=== PATIENT | male | born 1970 | race American Indian/Alaskan Native ===

== ENCOUNTER 2017-02-10 03:18 | Emergency (ER) | payer MEDICAID ==
[2017-02-10 03:19] VITALS: BMI 31.1
--- NOTE | 2017-02-10 03:36 | C.PDOC ---
History Of Present Illness Pt presents with suicidalideation and plan to jump in front of bus. steas he drank alcohol and took PCP.reuben. Pleasant and cooperative Time Seen by Provider: 02/10/17 03:36 Chief Complaint (Nursing): Psychiatric Evaluation History Per: Patient History/Exam Limitations: no limitations Onset/Duration Of Symptoms: Unknown Current Symptoms Are (Timing): Still Present Suicide/Self Injury Attempted (Context): None Modifying Factor(s): Alcohol, Narcotics Severity: Moderate Pain Scale Rating Of: 4 Associated Symptoms: Depression, Suicidal Thoughts, Suicidal Plan Involuntary Hold By: None Recent travel outside of the [place]: No Additional History Per: EMS Past Medical History Reviewed: Historical Data, Nursing Documentation, Vital Signs Vital Signs: Last Vital Signs Temp 97.9 F 02/10/17 03:30 Pulse 92 H 02/10/17 03:30 Resp 16 02/10/17 03:30 BP 145/86 02/10/17 03:30 Pulse Ox 99 02/10/17 03:41 - Medical History PMH: Depression, HTN, Hypercholesterolemia, Schizophrenia Denies: Diabetes, Hepatitis, HIV, Chronic Kidney Disease, Seizures, Sexually Transmitted Disease - [facility] Procedures GROUP SEISMOGRAPH SUPERVISOR FOR SUBSTANCE ABUSE TREATMENT, PSYCHOEDUCATION (10/06/16) GROUP PSYCHOTHERAPY (10/06/16) INDIVID PSYCHOTHERAP NEC (02/04/15) INDIVIDUAL PSYCHOTHERAPY, COGNITIVE-BEHAVIORAL (10/06/16) PHYSICAL THERAPY NEC (05/02/14) PSYCHIAT DRUG THERAP NEC (02/04/15) Family History: States: No Known Family Hx - Social History Hx Tobacco Use: Yes (heavy smoker) Hx Alcohol Use: Yes Hx Substance Use: Yes - Immunization History Hx Tetanus Toxoid Vaccination: No Hx Influenza Vaccination: No Hx Pneumococcal Vaccination: No Review Of Systems Constitutional: Negative for: Fever, Chills Eyes: Negative for: Redness ENT: Negative for: Throat Pain Cardiovascular: Negative for: Chest Pain Respiratory: Negative for: Shortness of Breath Gastrointestinal: Negative for: Nausea, Vomiting, Abdominal Pain Musculoskeletal: Negative for: Back Pain Skin: Negative for: Rash, Lesions, Jaundice, Bruising Neurological: Negative for: Weakness Psych: Positive for: Anxiety, Depression, Suicidal ideation Physical Exam - Physical Exam Appears: Non-toxic Skin: Warm, Dry Head: Normacephalic Eye(s): bilateral: Normal Inspection Oral Mucosa: Moist Neck: Supple Chest: Symmetrical Cardiovascular: Rhythm Regular Respiratory: No Rales, No Rhonchi, No Wheezing Gastrointestinal/Abdominal: Soft, No Tenderness, No Distention Back: No CVA Tenderness Extremity: Normal ROM Extremity: Bilateral: Normal Color And Temperature, Normal ROM Neurological/Psych: Oriented x3, Normal Speech, Normal Cognition Gait: Steady ED Course And Treatment - Laboratory Results Result Diagrams: 02/10/17 03:54 02/10/17 03:54 O2 Sat by Pulse Oximetry: 99 Pulse Ox Interpretation: Normal ED OBSERVATION Date of observation admission: 02/10/17 Time of observation admission: 05:40 - Observation admission statement Patient is being placed in observation because:: depression - Goals of Observation Goals of observation are:: crisis eval - Progress Note Progress Note: 02/10/17 05:40 vitals stable Disposition Counseled Patient/Family Regarding: Studies Performed, Diagnosis - Disposition Disposition Time: 03:36 Condition: UNKNOWN - Clinical Impression Clinical Impression: PCP abuse, Alcohol abuse, Depression
[2017-02-10 04:00] LABS: BASO # 0.1 K/uL (0.0-0.2); BASO % 0.9 % (0.0-2.0); EOS # 0.2 K/uL (0.0-0.7); EOS % 2.7 % (0.0-4.0); HEMATOCRIT 42.5 % (35.0-51.0); LYMPH # 1.8 K/uL (1.0-4.3); MEAN CELL VOLUME 92.8 fL (80.0-94.0); MEAN CORPUSCULAR HEMOGLOBIN 30.3 pg (27.0-31.0); MEAN CORPUSCULAR HGB CONC 32.7 g/dL (33.0-37.0); MONO # 0.7 K/uL (0.0-0.8); MONO % 7.6 % (0.0-10.0); NRBC % 0.1 % (0.0-2.0); RED CELL DISTRIBUTION WIDTH 13.1 % (11.5-14.5); WHITE BLOOD COUNT 9.2 K/uL (4.8-10.8)
[2017-02-10 04:05] LABS: CHLORIDE 102 mmol/L (98-107); POTASSIUM 3.5 mmol/L (3.6-5.2); SODIUM 141 mmol/L (132-148)
[2017-02-10 04:07] LABS: BILIRUBIN,TOTAL 0.8 mg/dL (0.2-1.3); CARBON DIOXIDE 30 mmol/L (22-30); GFR AFRICAN-AMERICAN > 60
[2017-02-10 04:08] LABS: ALB/GLOB RATIO 1.2 (1.0-2.1); ALKALINE PHOSPHATASE 93 U/L (38-126); ALT/SGPT 30 U/L (21-72); AST/SGOT 27 U/L (17-59); BLOOD UREA NITROGEN 14 mg/dL (9-20); CALCIUM 8.8 mg/dl (8.6-10.4); GLUCOSE,RANDOM 81 mg/dL (75-110)
[2017-02-10 04:09] LABS: ALCOHOL SERUM < 10 mg/dl (0-10)
[2017-02-10 06:45] LABS: RBC URINE < 1 /hpf (0-3); URINE BILIRUBIN NEGATIVE (NEGATIVE); URINE BLOOD NEGATIVE (NEGATIVE); URINE COLOR Yellow (YELLOW); URINE GLUCOSE (UA) NORMAL (Normal); URINE KETONE NEGATIVE (NEGATIVE); URINE LEUKOCYTE ESTERASE NEG Leu/uL (Negative); URINE PROTEIN NEGATIVE (NEGATIVE); WBC URINE < 1 /hpf (0-5)
[2017-02-10 08:39] VITALS: BP 150/90; PULSE 79; RESP 16; TEMP 97.9; O2SAT 98
== END 2017-02-10 08:45 | disposition home or self-care (01) ==
LOC: C.ER 03:18
DX: F16.10 Hallucinogen abuse, uncomplicated (principal)

== ENCOUNTER 2017-02-11 00:59 | Observation (INO) | payer MEDICAID ==
[2017-02-11 01:00] VITALS: BMI 31.1
--- NOTE | 2017-02-11 01:25 | C.PDOC ---
History Of Present Illness Patient is a 46 year old found on the street by EMS stating he is depressed and has SI. Patient denies ETOH intake or any physical complaints at this time. Chief Complaint (Nursing): Psychiatric Evaluation History Per: Patient History/Exam Limitations: no limitations Onset/Duration Of Symptoms: Hrs Current Symptoms Are (Timing): Still Present Suicide/Self Injury Attempted (Context): None Modifying Factor(s): None Associated Symptoms: Depression, Suicidal Thoughts. denies: Suicidal Plan Involuntary Hold By: None Recent travel outside of the [place]: No Past Medical History Reviewed: Historical Data, Nursing Documentation, Vital Signs Vital Signs: Last Vital Signs Temp 97.8 F 02/11/17 01:06 Pulse 95 H 02/11/17 01:06 Resp 20 02/11/17 01:06 BP 133/89 02/11/17 01:06 Pulse Ox 98 02/11/17 02:09 - Medical History PMH: Depression, HTN, Hypercholesterolemia, Schizophrenia Surgical History: No Surg Hx - [facility] Procedures GROUP ORE MINER FOR SUBSTANCE ABUSE TREATMENT, PSYCHOEDUCATION (10/06/16) GROUP PSYCHOTHERAPY (10/06/16) INDIVID PSYCHOTHERAP NEC (02/04/15) INDIVIDUAL PSYCHOTHERAPY, COGNITIVE-BEHAVIORAL (10/06/16) PHYSICAL THERAPY NEC (05/02/14) PSYCHIAT DRUG THERAP NEC (02/04/15) Family History: States: Unknown Family Hx - Social History Hx Tobacco Use: Yes (heavy smoker) Hx Alcohol Use: Yes Hx Substance Use: Yes - Immunization History Hx Tetanus Toxoid Vaccination: No Hx Influenza Vaccination: No Hx Pneumococcal Vaccination: No Review Of Systems Constitutional: Negative for: Fever, Chills Gastrointestinal: Negative for: Nausea, Vomiting, Diarrhea Psych: Positive for: Depression, Suicidal ideation Physical Exam - Physical Exam Appears: Non-toxic Skin: Normal Color, Warm, Dry Head: Atraumatic, Normacephalic Oral Mucosa: Moist Chest: Symmetrical, No Tenderness Cardiovascular: Rhythm Regular, No Murmur Respiratory: Normal Breath Sounds, No Rales, No Rhonchi, No Wheezing Gastrointestinal/Abdominal: Soft, No Tenderness Neurological/Psych: Oriented x3, Normal Speech, Normal Cognition ED Course And Treatment - Laboratory Results Result Diagrams: 02/11/17 01:30 02/11/17 01:30 O2 Sat by Pulse Oximetry: 98 (Room air) Pulse Ox Interpretation: Normal Progress Note: Blood work and urinalysis ordered. Consulted with crisis about patient. Disposition Discussed With .: Hermilo Alston Doctor Will See Patient In The: Hospital Counseled Patient/Family Regarding: Diagnosis - Disposition Referrals: [facility] [Outside] Disposition: HOME/ ROUTINE Disposition Time: 06:00 Condition: STABLE Instructions: Mood Disorders (ED), Polysubstance Abuse (ED) - POA Present On Arrival: None - Clinical Impression Clinical Impression: PCP abuse, PCP mood disorder, PCP psychosis - Scribe Statement The provider has reviewed the documentation as recorded by the Scribrenaldo Giang All medical record entries made by the Scribe were at my direction and personally dictated by me. I have reviewed the chart and agree that the record accurately reflects my personal performance of the history, physical exam, medical decision making, and the department course for this patient. I have also personally directed, reviewed, and agree with the discharge instructions and disposition.
[2017-02-11 01:43] LABS: BASO # 0.1 K/uL (0.0-0.2); BASO % 0.8 % (0.0-2.0); EOS # 0.2 K/uL (0.0-0.7); EOS % 3.1 % (0.0-4.0); HEMATOCRIT 42.2 % (35.0-51.0); LYMPH # 1.8 K/uL (1.0-4.3); LYMPH % 23.7 % (20.0-40.0); MEAN CELL VOLUME 92.1 fL (80.0-94.0); MEAN CORPUSCULAR HEMOGLOBIN 30.6 pg (27.0-31.0); MEAN CORPUSCULAR HGB CONC 33.2 g/dL (33.0-37.0); MONO # 0.5 K/uL (0.0-0.8); MONO % 6.7 % (0.0-10.0); NRBC % 0.1 % (0.0-2.0); RED CELL DISTRIBUTION WIDTH 13.1 % (11.5-14.5); WHITE BLOOD COUNT 7.8 K/uL (4.8-10.8)
[2017-02-11 01:59] LABS: CHLORIDE 101 mmol/L (98-107); POTASSIUM 3.7 mmol/L (3.6-5.2); SODIUM 146 mmol/L (132-148)
[2017-02-11 02:01] LABS: GFR AFRICAN-AMERICAN > 60
[2017-02-11 02:02] LABS: ALB/GLOB RATIO 1.2 (1.0-2.1); ALKALINE PHOSPHATASE 94 U/L (38-126); ALT/SGPT 31 U/L (21-72); AST/SGOT 28 U/L (17-59); BILIRUBIN,TOTAL 0.9 mg/dL (0.2-1.3); BLOOD UREA NITROGEN 12 mg/dL (9-20); CALCIUM 9.1 mg/dl (8.6-10.4); CARBON DIOXIDE 30 mmol/L (22-30); GLUCOSE,RANDOM 98 mg/dL (75-110); TOTAL PROTEIN 8.1 g/dL (6.3-8.3)
[2017-02-11 02:30] LABS: ALCOHOL SERUM 54 mg/dl (0-10)
[2017-02-11 06:16] VITALS: BP 144/80; PULSE 86; RESP 16; TEMP 98.3; O2SAT 99
== END 2017-02-11 06:12 | disposition home or self-care (01) ==
LOC: C.ER 00:59 → C.9OBSV 02:28
PROVIDERS: ADMIT Emergency Medicine; ATTEND Emergency Medicine
DX: F16.14 Hallucinogen abuse with hallucinogen-induced mood disorder (principal); F10.120 Alcohol abuse with intoxication, uncomplicated; Y90.2 Blood alcohol level of 40-59 mg/100 ml; I10 Essential (primary) hypertension; E78.00 Pure hypercholesterolemia, unspecified
CPT/HCPCS: 80053; 80320; 85025; 99283; G0378

== ENCOUNTER 2017-03-17 23:31 | Inpatient (IN) | payer MEDICAID ==
[2017-03-17 23:31] VITALS: BMI 31.1
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
[2017-03-17 23:47] VITALS: O2SAT 99
[2017-03-18 00:19] LABS: BASO # 0.1 K/uL (0.0-0.2); BASO % 0.7 % (0.0-2.0); EOS # 0.3 K/uL (0.0-0.7); EOS % 3.1 % (0.0-4.0); HEMOGLOBIN 12.4 g/dL (12.0-18.0); LYMPH # 1.4 K/uL (1.0-4.3); LYMPH % 16.4 % (20.0-40.0); MEAN CORPUSCULAR HEMOGLOBIN 30.1 pg (27.0-31.0); MEAN CORPUSCULAR HGB CONC 32.4 g/dL (33.0-37.0); MEAN PLATELET VOLUME 10.6 fL (7.2-11.7); MONO # 0.9 K/uL (0.0-0.8); MONO % 10.2 % (0.0-10.0); NEUT # 6.2 K/uL (1.8-7.0); NEUT % 69.6 % (50.0-75.0); RBC 4.11 Mil/uL (4.40-5.90); WHITE BLOOD COUNT 8.8 K/uL (4.8-10.8)
[2017-03-18 00:23] LABS: SQUAMOUS EPITHIAL < 1 /hpf (0-5); URINE BILIRUBIN NEGATIVE (NEGATIVE); URINE BLOOD NEGATIVE (NEGATIVE); URINE CLARITY Clear (Clear); URINE COLOR Yellow (YELLOW); URINE GLUCOSE (UA) NORMAL (Normal); URINE LEUKOCYTE ESTERASE NEG Leu/uL (Negative); URINE NITRATE NEGATIVE (NEGATIVE); URINE PROTEIN NEGATIVE (NEGATIVE); URINE UROBILINOGEN NORMAL mg/dL (0.2-1.0)
[2017-03-18 00:34] LABS: ALBUMIN 3.9 g/dL (3.5-5.0)
[2017-03-18 00:36] LABS: GFR AFRICAN-AMERICAN > 60; GFR NON-AFRICAN AMERICAN > 60
[2017-03-18 00:37] LABS: ALB/GLOB RATIO 1.2 (1.0-2.1); ALT/SGPT 38 U/L (21-72); AST/SGOT 32 U/L (17-59); BLOOD UREA NITROGEN 11 mg/dL (9-20); CALCIUM 8.9 mg/dl (8.6-10.4)
[2017-03-18 00:39] LABS: BARBITURATES, UR NEGATIVE (NEGATIVE)
[2017-03-18 00:40] LABS: BENZODIAZEPINES, UR NEGATIVE (NEGATIVE)
[2017-03-18 00:42] LABS: OPIATES, UR NEGATIVE (NEGATIVE)
[2017-03-18 00:43] LABS: PHENCYCLIDINE, UR POSITIVE (NEGATIVE)
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
[2017-03-18] MEDS ORDERED: QUEtiapine 200 mg XR Tab PO SCH (22:00)
[2017-03-18] MEDS ORDERED: QUEtiapine 150 mg XR Tab PO SCH (22:00)
[2017-03-19 07:46] VITALS: BP 157/95; PULSE 68; RESP 19; TEMP 98.2
[2017-03-19] MEDS ORDERED: Haloperidol Decanoate 100 mg/ml Inj IM ONE (10:24)
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
== END 2017-03-19 11:00 | disposition left against medical advice (07) | DRG 430 ==
LOC: C.ER 23:31 → C.5E 03-18 02:40
PROVIDERS: ADMIT Psychiatry & Neurology Psychiatry; ATTEND Psychiatry & Neurology Psychiatry
PROC: GZ3ZZZZ Medication Management (ICD-10-PCS; principal; 2017-03-18)
PROC: HZ89ZZZ Medication Management for Substance Abuse Treatment, Other Replacement Medication (ICD-10-PCS; 2017-03-18)
PROC: HZ36ZZZ Individual Counseling for Substance Abuse Treatment, Psychoeducation (ICD-10-PCS; 2017-03-18)
PROC: GZHZZZZ Group Psychotherapy (ICD-10-PCS; 2017-03-18)
PROC: GZ56ZZZ Individual Psychotherapy, Supportive (ICD-10-PCS; 2017-03-18)
DX: F25.0 Schizoaffective disorder, bipolar type (principal); F16.10 Hallucinogen abuse, uncomplicated; R45.851 Suicidal ideations; R45.850 Homicidal ideations; E78.00 Pure hypercholesterolemia, unspecified; I10 Essential (primary) hypertension; G89.29 Other chronic pain; F10.10 Alcohol abuse, uncomplicated; Z79.899 Other long term (current) drug therapy

== ENCOUNTER 2017-11-02 01:29 | Emergency (ER) | payer MEDICAID ==
[2017-11-02 01:29] VITALS: BMI 31.1
--- NOTE | 2017-11-02 03:27 | C.PDOC ---
History Of Present Illness 47 year old male presents to the ED for evaluation of increased depression. Patient endorses thoughts of hurting himself but denies plan. He states that he has been noncompliant with his psychiatric medications for the past 6 months. He denies headache, chest pain, shortness of breath, or homicidal ideation. Time Seen by Provider: 11/02/17 02:50 Chief Complaint (Nursing): Psychiatric Evaluation History Per: Patient History/Exam Limitations: no limitations Onset/Duration Of Symptoms: Unknown Current Symptoms Are (Timing): Still Present Suicide/Self Injury Attempted (Context): None Modifying Factor(s): None Associated Symptoms: Depression, Suicidal Thoughts. denies: Suicidal Plan Involuntary Hold By: None Recent travel outside of the [place]: No Past Medical History Reviewed: Historical Data, Nursing Documentation, Vital Signs Vital Signs: Last Vital Signs Temp 98 F 11/02/17 02:34 Pulse 90 11/02/17 02:34 Resp 20 11/02/17 02:34 BP 159/107 H 11/02/17 02:34 Pulse Ox 97 11/02/17 04:54 - Medical History PMH: Depression, HTN, Hypercholesterolemia, Schizophrenia Denies: Diabetes, Hepatitis, HIV, Chronic Kidney Disease, Seizures, [facility] Procedures GROUP DEGREASER FOR SUBSTANCE ABUSE TREATMENT, PSYCHOEDUCATION (10/06/16) GROUP PSYCHOTHERAPY (03/18/17) INDIV DEGREASER FOR SUBSTANCE ABUSE TREATMENT, PSYCHOEDUCATION (03/18/17) INDIVID PSYCHOTHERAP NEC (02/04/15) INDIVIDUAL PSYCHOTHERAPY, COGNITIVE-BEHAVIORAL (10/06/16) INDIVIDUAL PSYCHOTHERAPY, SUPPORTIVE (03/18/17) MEDICATION MANAGEMENT (03/18/17) MEDS MGMT FOR SUBSTANCE ABUSE TREATMENT, OTH REPL MED (03/18/17) PHYSICAL THERAPY NEC (05/02/14) PSYCHIAT DRUG THERAP NEC (02/04/15) Family History: States: Unknown Family Hx - Social History Hx Tobacco Use: Yes (heavy smoker) Hx Alcohol Use: Yes Hx Substance Use: Yes - Immunization History Hx Tetanus Toxoid Vaccination: No Hx Influenza Vaccination: No Hx Pneumococcal Vaccination: No Review Of Systems Constitutional: Negative for: Fever, Chills ENT: Negative for: Ear Pain, Throat Pain Cardiovascular: Negative for: Chest Pain Respiratory: Negative for: Cough, Shortness of Breath Gastrointestinal: Negative for: Nausea, Vomiting, Abdominal Pain, Diarrhea Skin: Negative for: Rash Neurological: Negative for: Headache Psych: Positive for: Suicidal ideation (no suicidal plan) Physical Exam - Physical Exam Appears: Non-toxic, No Acute Distress Skin: Normal Color, Warm, Dry Head: Atraumatic, Normacephalic Eye(s): bilateral: Normal Inspection, PERRL, EOMI Oral Mucosa: Moist Chest: Symmetrical Cardiovascular: Rhythm Regular Respiratory: Normal Breath Sounds, No Rales, No Rhonchi, No Wheezing Back: Normal Inspection Extremity: Normal ROM, No Deformity Neurological/Psych: Oriented x3, Normal Speech Gait: Steady ED Course And Treatment - Laboratory Results Result Diagrams: 11/02/17 04:01 11/02/17 04:01 O2 Sat by Pulse Oximetry: 97 Pulse Ox Interpretation: Normal Progress Note: Labs reviewed and pt is medically cleared for crisis evaluation Disposition - Disposition Disposition Time: 07:16 Condition: STABLE Forms: [facility] (Kazakh) - Clinical Impression Clinical Impression: Moderate major depression, single episode - Scribe Statement The provider has reviewed the documentation as recorded by the Scribe (Warner Shah) All medical record entries made by the Scribe were at my direction and personally dictated by me. I have reviewed the chart and agree that the record accurately reflects my personal performance of the history, physical exam, medical decision making, and the department course for this patient. I have also personally directed, reviewed, and agree with the discharge instructions and disposition. Physician Patient Turnover Patient Signed Over To: Lillian Post Handoff Comments: pending crisis eval for diaposition
[2017-11-02 04:05] LABS: BASO # 0.1 K/uL (0.0-0.2); BASO % 1.1 % (0.0-2.0); EOS # 0.3 K/uL (0.0-0.7); HEMOGLOBIN 12.3 g/dL (12.0-18.0); LYMPH # 1.8 K/uL (1.0-4.3); MEAN CELL VOLUME 91.4 fL (80.0-94.0); MEAN CORPUSCULAR HEMOGLOBIN 30.7 pg (27.0-31.0); MEAN CORPUSCULAR HGB CONC 33.6 g/dL (33.0-37.0); MONO # 0.7 K/uL (0.0-0.8); MONO % 9.7 % (0.0-10.0); NEUT # 3.8 K/uL (1.8-7.0); NEUT % 57.2 % (50.0-75.0); RBC 4.02 Mil/uL (4.40-5.90); RED CELL DISTRIBUTION WIDTH 13.3 % (11.5-14.5); WHITE BLOOD COUNT 6.7 K/uL (4.8-10.8)
[2017-11-02 04:09] LABS: SQUAMOUS EPITHIAL < 1 /hpf (0-5); URINE BILIRUBIN NEGATIVE (NEGATIVE); URINE BLOOD NEGATIVE (NEGATIVE); URINE CLARITY Clear (Clear); URINE COLOR Yellow (YELLOW); URINE GLUCOSE (UA) NORMAL (Normal); URINE LEUKOCYTE ESTERASE NEG Leu/uL (Negative); URINE NITRATE NEGATIVE (NEGATIVE); URINE PROTEIN NEGATIVE (NEGATIVE); URINE UROBILINOGEN NORMAL mg/dL (0.2-1.0)
[2017-11-02 04:18] LABS: ALB/GLOB RATIO 1.1 (1.0-2.1); ALBUMIN 3.7 g/dL (3.5-5.0); ALT/SGPT 30 U/L (21-72); AST/SGOT 33 U/L (17-59); BLOOD UREA NITROGEN 12 mg/dL (9-20); CALCIUM 8.6 mg/dl (8.6-10.4); GFR AFRICAN-AMERICAN > 60; GFR NON-AFRICAN AMERICAN > 60
[2017-11-02 04:21] LABS: BARBITURATES, UR NEGATIVE (NEGATIVE); BENZODIAZEPINES, UR NEGATIVE (NEGATIVE); OPIATES, UR NEGATIVE (NEGATIVE)
[2017-11-02 04:22] LABS: PHENCYCLIDINE, UR POSITIVE (NEGATIVE)
[2017-11-02 08:02] VITALS: PULSE 82; RESP 18; TEMP 98.2; O2SAT 98
[2017-11-02 09:32] VITALS: BP 148/90
== END 2017-11-02 09:50 | disposition home or self-care (01) ==
LOC: C.ER 01:29
DX: F25.9 Schizoaffective disorder, unspecified (principal); F32.1 Major depressive disorder, single episode, moderate; E78.00 Pure hypercholesterolemia, unspecified; I10 Essential (primary) hypertension; F17.210 Nicotine dependence, cigarettes, uncomplicated

== ENCOUNTER 2018-02-11 18:57 | Emergency (ER) | payer MEDICAID ==
[2018-02-11 18:57] VITALS: BMI 31.1
[2018-02-11 19:09] VITALS: O2SAT 100
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
[2018-02-11 19:56] LABS: BASO # 0.1 K/uL (0.0-0.2); EOS # 0.2 K/uL (0.0-0.7); EOS % 2.7 % (0.0-4.0); HEMOGLOBIN 13.8 g/dL (12.0-18.0); LYMPH # 1.9 K/uL (1.0-4.3); LYMPH % 26.2 % (20.0-40.0); MEAN CELL VOLUME 92.6 fL (80.0-94.0); MEAN CORPUSCULAR HEMOGLOBIN 30.4 pg (27.0-31.0); MEAN CORPUSCULAR HGB CONC 32.9 g/dL (33.0-37.0); MEAN PLATELET VOLUME 9.8 fL (7.2-11.7); MONO # 0.6 K/uL (0.0-0.8); MONO % 9.2 % (0.0-10.0); NEUT # 4.3 K/uL (1.8-7.0); NEUT % 60.9 % (50.0-75.0); RBC 4.54 Mil/uL (4.40-5.90); RED CELL DISTRIBUTION WIDTH 13.1 % (11.5-14.5); WHITE BLOOD COUNT 7.1 K/uL (4.8-10.8)
[2018-02-11 20:09] LABS: ALB/GLOB RATIO 1.2 (1.0-2.1); ALBUMIN 4.3 g/dL (3.5-5.0); ALT/SGPT 29 U/L (21-72); AST/SGOT 27 U/L (17-59); BLOOD UREA NITROGEN 9 mg/dL (9-20); CALCIUM 8.7 mg/dl (8.6-10.4); GFR AFRICAN-AMERICAN > 60; GFR NON-AFRICAN AMERICAN > 60
[2018-02-11 21:00] LABS: URINE BACTERIA OCC (<OCC); URINE BILIRUBIN NEGATIVE (NEGATIVE); URINE BLOOD NEGATIVE (NEGATIVE); URINE CLARITY Clear (Clear); URINE COLOR Yellow (YELLOW); URINE GLUCOSE (UA) NORMAL (Normal); URINE LEUKOCYTE ESTERASE NEG Leu/uL (Negative); URINE PROTEIN NEGATIVE (NEGATIVE)
[2018-02-11 21:12] LABS: BARBITURATES, UR NEGATIVE (NEGATIVE); BENZODIAZEPINES, UR NEGATIVE (NEGATIVE); OPIATES, UR NEGATIVE (NEGATIVE)
[2018-02-11 21:14] LABS: PHENCYCLIDINE, UR POSITIVE (NEGATIVE)
[2018-02-11 21:58] VITALS: BP 140/92; PULSE 61; RESP 16; TEMP 97.7
--- NOTE | 2018-02-12 08:27 | RAD ---
Chest x-ray single frontal view History: Chest pain. Comparison: None available. Findings: Mild venous congestion. Right hilar prominence. Tortuous aorta. Top normal heart size. Degenerative changes in the spine. Impression: Mild venous congestion. Right hilar prominence. Tortuous aorta. Top normal heart size.
--- NOTE | 2018-02-12 19:25 | CARD ---
APPROVED REPORT EKG Measurement Heart [id number] <Conclusion> Normal sinus rhythm Minimal voltage criteria for LVH, may be normal variant Borderline ECG
== END 2018-02-11 21:45 ==
LOC: C.ER 18:57
DX: F25.9 Schizoaffective disorder, unspecified (principal); R07.9 Chest pain, unspecified; E78.00 Pure hypercholesterolemia, unspecified; I10 Essential (primary) hypertension; F17.200 Nicotine dependence, unspecified, uncomplicated